=== PATIENT | female | born 1995 | race Asian ===

== ENCOUNTER 2018-11-18 02:32 | Emergency (ER) | payer MEDICAID ==
[~2018-11-18] VITALS: Ht 167.6 cm; Wt 88.0 kg
[2018-11-18 02:54] VITALS: BP 135/86
== END 2018-11-18 04:50 | disposition left against medical advice (07) ==
LOC: ER 02:32
DX: R51 Headache (principal); Z53.21 Procedure and treatment not carried out due to patient leaving prior to being seen by health care provider

== ENCOUNTER 2019-04-05 12:17 | Observation (INO) | payer MEDICAID ==
[~2019-04-05] VITALS: Ht 170.2 cm; Wt 95.7 kg
== END 2019-04-05 14:15 | disposition home or self-care (01) ==
LOC: 8 EST LDRP 12:17
PROVIDERS: ADMIT Specialist; ATTEND Specialist
DX: O48.0 Post-term pregnancy (principal); Z3A.40 40 weeks gestation of pregnancy
CPT/HCPCS: 76815; 76818; 99281; G0378

== ENCOUNTER 2019-04-08 | Inpatient (IN) | payer MEDICAID ==
[~2019-04-08] VITALS: Ht 170.2 cm; Wt 95.3 kg
[2019-04-08] MEDS ORDERED: BUTORPHANOL TARTRATE 2 MG/ML VIAL IV PRN (01:15)
[2019-04-08] MEDS ORDERED: LIDOCAINE HCL 1% 20ML VIAL (Pyxis) INJ INFIL SCH (01:15)
[2019-04-08] MEDS: DEXT 5%/LACTATED RINGERS 1,000 ML IV SCH ×3 (02:00→14:21)
[2019-04-08 02:51] LABS: BASOPHILS % 0.2 % (0.0-2.0); EOSINOPHILS % 1.4 % (0.0-5.0); HEMOGLOBIN. 11.6 g/dL (12.0-16.0); LYMPHOCYTES % 19.2 % (20.0-50.0); MEAN CORPUSCULAR HEMOGLOBIN 31.3 pg (28.0-32.0); MEAN CORPUSCULAR VOLUME 92.2 fL (81.0-99.0); MEAN PLATELET VOLUME 8.7 fl (7.4-10.4); MONOCYTES % 8.4 % (2.0-8.0); NEUTROPHILS % 70.8 % (40.0-76.0); PLATELET 177 x1000/uL (130-400); RED BLOOD CELL COUNT 3.69 mill/uL (4.2-5.4)
[2019-04-08 03:04] LABS: INR 0.9; PARTIAL THROMBOPLASTIN TIME 27.3 sec (23.4-31.0); PROTHROMBIN TIME 9.2 sec (9.6-11.0)
[2019-04-08] MEDS: MISOPROSTOL 100MCG TABLET VG PRN ×4 (03:10→20:14)
[2019-04-08 03:11] LABS: CLARITY URINE CLEAR (CLEAR); COLOR URINE YELLOW (YELLOW); KETONES URINE NEGATIVE (NEGATIVE); LEUKOCYTE ESTERASE URINE NEGATIVE (NEGATIVE); NITRITE URINE NEGATIVE (NEGATIVE); OCCULT BLOOD URINE NEGATIVE (NEGATIVE); PH URINE 6.5 (4.5-8.0); PROTEIN URINE NEGATIVE (NEGATIVE); SPECIFIC GRAVITY URINE 1.016 (1.005-1.030); UROBILINOGEN URINE 0.2 E.U./dL (0.2-1.0)
[2019-04-08 04:05] LABS: *AMPHETAMINES SCREEN URINE NEGATIVE (NEGATIVE); *BARBITURATES SCREEN URINE NEGATIVE (NEGATIVE)
[2019-04-08 04:06] LABS: *BENZODIAZEPINES SCREEN URINE NEGATIVE (NEGATIVE); *COCAINE SCREEN URINE NEGATIVE (NEGATIVE); CANNABINOID URINE SCREEN NEGATIVE (NEGATIVE); METHADONE URINE SCREEN NEGATIVE (NEGATIVE); OPIATES URINE SCREEN NEGATIVE (NEGATIVE); PHENCYCLIDINE URINE SCREEN NEGATIVE (NEGATIVE)
[2019-04-08] MEDS ORDERED: PREN-182 PO (05:14)
[2019-04-08] MEDS: LACTATED RINGERS 1,000 ML IV SCH ×2 (14:30→22:12)
[2019-04-09] MEDS ORDERED: MISOPROSTOL 100MCG TABLET VG PRN (05:15)
[2019-04-09] MEDS: LACTATED RINGERS 1,000 ML IV SCH ×3 (06:07→18:50)
[2019-04-09] MEDS: DEXT 5%/LR + PITOCIN 20UNITS/L 1,000 ML IV SCH (12:04)
[2019-04-09] MEDS ORDERED: BUTORPHANOL TARTRATE 2 MG/ML VIAL IM PRN (15:15)
[2019-04-09] MEDS ORDERED: METHYLERGONOVINE MALEATE 0.2 MG/ML IM NR (15:15)
[2019-04-09] MEDS ORDERED: TERBUTALINE SULFATE 1MG/ML VIAL SUBCUT PRN (15:15)
[2019-04-09] MEDS: BUTORPHANOL TARTRATE 2 MG/ML VIAL IV PRN ×2 (15:31→19:14)
[2019-04-09] MEDS ORDERED: LABETALOL HCL 5MG/ML VIAL 20ML IV PRN ×3 (17:30)
[2019-04-09 17:51] LABS: BASOPHILS % 0.2 % (0.0-2.0); CHLORIDE 109 mEq/L (98-107); EOSINOPHILS % 0.5 % (0.0-5.0); HEMATOCRIT. 34.7 % (36.0-48.0); LYMPHOCYTES % 15.6 % (20.0-50.0); MEAN CORPUSCULAR HEMOGLOBIN 31.7 pg (28.0-32.0); MEAN CORPUSCULAR VOLUME 91.9 fL (81.0-99.0); MEAN PLATELET VOLUME 8.9 fl (7.4-10.4); MONOCYTES % 7.1 % (2.0-8.0); NEUTROPHILS % 76.6 % (40.0-76.0); PLATELET 176 x1000/uL (130-400); RED BLOOD CELL COUNT 3.78 mill/uL (4.2-5.4); RED CELL DISTRIBUTION WIDTH 13.1 % (11.6-14.6)
[2019-04-09 17:55] LABS: D-DIMER 0.59 mg/L FEU (<0.50); INR 0.9; PARTIAL THROMBOPLASTIN TIME 28.3 sec (23.4-31.0); PROTHROMBIN TIME 9.2 sec (9.6-11.0)
[2019-04-09] MEDS ORDERED: FENTANYL CITRATE/PF 50MCG/ML 2ML VIAL ONE (18:56)
[2019-04-09] MEDS ORDERED: ROPIVACAINE HCL/PF EPIDURAL 200 ML EPI SCH (19:00)
[2019-04-10] MEDS: DEXT 5%/LR + PITOCIN 20UNITS/L 1,000 ML IV SCH (00:02)
[2019-04-10] MEDS ORDERED: DEXT 5%/LR + PITOCIN 20UNITS/L 1,000 ML IV SCH (01:20)
[2019-04-10] MEDS ORDERED: GLYCERIN/WITCH HAZEL LEAF MEDICATED PAD TOP PRN (01:30)
[2019-04-10] MEDS ORDERED: ACETAMINOPHEN WITH CODEINE 300/30MG TABLET PO PRN (01:30)
[2019-04-10] MEDS ORDERED: IBUPROFEN 400MG TABLET PO PRN (01:30)
[2019-04-10] MEDS ORDERED: HEMORRHOIDAL SUPP PR PRN (01:30)
[2019-04-10] MEDS ORDERED: BISACODYL 10MG SUPP PR PRN (01:30)
[2019-04-10 02:00] VITALS: BP 116/77
[2019-04-10 02:30] VITALS: BP 121/79
[2019-04-10 04:00] VITALS: BP 122/83
[2019-04-10 06:56] LABS: BASOPHILS % 0.2 % (0.0-2.0); HEMATOCRIT. 32.7 % (36.0-48.0); HEMOGLOBIN. 11.7 g/dL (12.0-16.0); LYMPHOCYTES % 13.1 % (20.0-50.0); MEAN CORPUSCULAR HEMOGLOBIN 32.8 pg (28.0-32.0); MEAN CORPUSCULAR VOLUME 91.7 fL (81.0-99.0); MEAN PLATELET VOLUME 9.3 fl (7.4-10.4); MONOCYTES % 5.3 % (2.0-8.0); NEUTROPHILS % 81.4 % (40.0-76.0); PLATELET 167 x1000/uL (130-400); RED BLOOD CELL COUNT 3.56 mill/uL (4.2-5.4)
[2019-04-10 07:27] LABS: CHLORIDE 109 mEq/L (98-107)
[2019-04-10 08:00] VITALS: BP 118/76
[2019-04-10] MEDS: PRENATAL VIT/FE FUMARATE/FA TABLET PO SCH (09:09)
[2019-04-10 16:10] VITALS: BP 133/90
[2019-04-10 19:54] VITALS: BP 130/96
[2019-04-10] MEDS ORDERED: DOCUSATE SODIUM 100MG CAPSULE PO SCH (21:00)
[2019-04-11 03:56] VITALS: BP 134/88
[2019-04-11] MEDS ORDERED: FERROUS SULFATE 325MG TABLET PO SCH (07:30)
[2019-04-11 07:34] VITALS: BP 112/74
[2019-04-11] MEDS: PRENATAL VIT/FE FUMARATE/FA TABLET PO SCH (08:39)
[2019-04-11] MEDS ORDERED: TETANUS, DIPHTHERIA, PERTUSSIS VAC/PF 0.5ML (>7YR OLD) IM ONE (09:00)
== END 2019-04-11 13:40 | disposition home or self-care (01) | DRG 560 ==
LOC: OBSVTOIN → 8 EST LDRP → 8EST 04-10 01:55
PROVIDERS: ADMIT Specialist; ATTEND Specialist
PROC: 10E0XZZ Delivery of Products of Conception, External Approach (ICD-10-PCS; principal; 2019-04-10)
PROC: 3E0R3BZ Introduction of Anesthetic Agent into Spinal Canal, Percutaneous Approach (ICD-10-PCS; 2019-04-10)
PROC: 00HU33Z Insertion of Infusion Device into Spinal Canal, Percutaneous Approach (ICD-10-PCS; 2019-04-10)
PROC: 3E0P7VZ Introduction of Hormone into Female Reproductive, Via Natural or Artificial Opening (ICD-10-PCS; 2019-04-10)
DX: O48.0 Post-term pregnancy (principal); E66.9 Obesity, unspecified; Z37.0 Single live birth; O99.214 Obesity complicating childbirth; Z3A.41 41 weeks gestation of pregnancy; Z88.1 Allergy status to other antibiotic agents
CPT/HCPCS: 36415; 76815; 80305; 84550; 85379; 85384; 86592; 86850; 86900; 87340; 90715; G0378; J0595; J2590; J2795; J3010; J7120; J7121